=== PATIENT | female | born 1980 | race African-American/Black ===

== ENCOUNTER 2016-11-14 21:20 | Emergency (ER) | payer OTHER ==
[~2016-11-14] VITALS: Ht 165.1 cm; Wt 63.5 kg
[~2016-11-14 21:20] MED LIST: IBUPROFEN800 MG PO; NKM; NORCO 5-325 TA1 EACH ORAL; OCUFLOX5 ML BOTH EYES
[2016-11-14] MEDS ORDERED: NAPHCON-A EYE D15 ML OP (22:15)
[2016-11-14] MEDS ORDERED: CLARITIN10 M2 ORAL (22:15)
[2016-11-14 22:35] VITALS: BP 136/89
--- NOTE | 2016-11-15 03:40 | Emergency Room Report ---
History of Present Illness General Chief Complaint: Eye Problems Source: Patient Present Illness HPI Patient is a 36-year-old female who presented after having increased eye redness and discharge. Patient reported having several weeks of increased thin bilateral eye drainage associated with itching. The patient denied any thick crusting to the eyes. Patient stated that she was having similar symptoms in the past. Patient reported having some eye irritation. Allergies: Coded Allergies: No Known Allergies (Unverified , 06/02/13) Patient History Past Medical History: see triage record Last Menstrual Period: Oct Reviewed Nursing Documentation: PMH: Agreed, PSxH: Agreed Nursing Documentation-PM Past Medical History: No Stated History Review of Systems All Other Systems: negative except mentioned in HPI Physical Exam Vital Signs Date Time Temp Pulse Resp B/P Pulse Ox O2 Delivery O2 Flow Rate FiO2 11/14/16 22:03 98.4 97 16 136/89 100 Room Air General Appearance: well appearing, no apparent distress, alert, GCS 15 Head: normocephalic, atraumatic Eyes: bilateral eye PERRL, bilateral eye other - bilateral conjunctiva exudate ENT: hearing grossly normal, normal voice Neck: full range of motion, supple Respiratory: no respiratory distress, speaking full sentences Cardiovascular #1: normal inspection, normal peripheral pulses, regular rate, rhythm, no edema Gastrointestinal: normal inspection, normal bowel sounds, non tender, soft Genitourinary: normal inspection, no CVA tenderness Musculoskeletal: normal inspection, back normal, no calf tenderness Neurologic: normal inspection, alert, oriented x3, responsive, 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 Differential diagnosis included but wasn't limited to glaucoma, iritis, corneal abrasion, bacterial conjunctivitis, viral conjunctivitis. Patient's benign exam and does not appear to require any further imaging or laboratory testing at this time. The patient noted have some diminished visual acuity. 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 Patient was given prescription for topical eyedrops for allergy. Patient is advised to return should be having increased pain or decreased vision or other concerns. Last Vital Signs Date Time Temp Pulse Resp B/P Pulse Ox O2 Delivery O2 Flow Rate FiO2 11/14/16 22:35 98.4 75 16 136/89 100 Room Air Status: improved Disposition: HOME, SELF-CARE Condition: Stable Scripts Loratadine (CLARITIN) 10 Mg Capsule 10 MG ORAL DAILY, #30 CAP Prov: Mateus Fitzgerald 11/14/16 Naphazoline Hcl/Phenir Mal (NAPHCON-A EYE DROPS) 15 Ml Drops 15 ML OP BID, #15 ML Prov: Mateus Fitzgerald 11/14/16 Referrals: NOT CHOSEN IPA/MD,REFERRING Patient Instructions: Allergic Conjunctivitis Mateus Fitzgerald Nov 15, 2016 03:40
== END 2016-11-14 22:35 | disposition home or self-care (01) ==
LOC: EMR 22:18
DX: H10.13 Acute atopic conjunctivitis, bilateral (principal)
CPT/HCPCS: 99284

== ENCOUNTER 2017-04-25 21:52 | Emergency (ER) | payer OTHER ==
[~2017-04-25] VITALS: Ht 165.1 cm; Wt 49.9 kg
[~2017-04-25 21:52] MED LIST changes: +CLARITIN10 M2 ORAL; +NAPHCON-A EYE D15 ML OP
[2017-04-25 22:30] VITALS: BP 120/80
[2017-04-25] MEDS ORDERED: Bicillin LA 1.2 Million Units Syr IM ONE (23:15)
[2017-04-25] MEDS ORDERED: Ketorolac 60mg Inj IM ONE (23:15)
[2017-04-25] MEDS ORDERED: KEFLEX500 MG ORAL (23:35)
[2017-04-25] MEDS ORDERED: PREDNISONE20 MG ORAL (23:37)
[2017-04-26 00:13] VITALS: BP 124/82
--- NOTE | 2017-04-26 06:22 | Emergency Room Report ---
History of Present Illness General Chief Complaint: Skin Rash/Abscess Source: Patient Present Illness HPI Patient is a 36-year-old female who presented after increased rash to her neck face and upper extremity. She had gradual onset of symptoms in the past few days. Patient denies any fever. She stated that she had been squeezing several lesions and had noticed some drainage. She reported having a generalized itchiness. Allergies: Coded Allergies: No Known Allergies (Unverified , 06/02/13) Patient History Past Medical History: see triage record Now: No Reviewed Nursing Documentation: PMH: Agreed, PSxH: Agreed Nursing Documentation-PMH Past Medical History: No Stated History Review of Systems All Other Systems: negative except mentioned in HPI Physical Exam Vital Signs Date Time Temp Pulse Resp B/P Pulse Ox O2 Delivery O2 Flow Rate FiO2 04/25/17 22:25 97.9 78 16 120/80 98 Room Air General Appearance: well appearing, no apparent distress, alert, GCS 15 Head: normocephalic, atraumatic ENT: hearing grossly normal, normal voice Neck: full range of motion, supple Respiratory: no respiratory distress, speaking full sentences Gastrointestinal: normal inspection, non tender, soft Musculoskeletal: no calf tenderness Neurologic: normal gait Psychiatric: mood/affect normal Skin: other - multiple scaley areas to neck trunk, arms Medical Decision Making Diagnostic Impression: Primary Impression: Rash and other nonspecific skin eruption ER Course Patient presented for skin rash. Differential diagnosis included was not limited to Velasco-Alonso syndrome, urticaria, erythema multiforme, contact dermatitis. Patient's benign exam and does not appear to require any further imaging or laboratory testing at this time. The patient is advised to follow up with primary care doctor in 1-2 days. Patient is advised to return if any worsening condition or if any changes in status that are concerning. Last Vital Signs Date Time Temp Pulse Resp B/P Pulse Ox O2 Delivery O2 Flow Rate FiO2 04/26/17 00:13 76 20 124/82 98 Room Air 04/25/17 22:30 97.9 Status: improved Disposition: HOME, SELF-CARE Condition: Stable Scripts Prednisone* (PREDNISONE*) 20 Mg Tablet 40 MG ORAL DAILY, #10 TAB Prov: Mateus Fitzgerald 04/25/17 Referrals: [facility],REFERRING (PCP) Patient Instructions: Mateus Aguilar Apr 26, 2017 06:22
== END 2017-04-26 00:15 | disposition home or self-care (01) ==
LOC: EMR 22:57
DX: R21 Rash and other nonspecific skin eruption (principal)
CPT/HCPCS: 81025; 96372; 99283; J0561

== ENCOUNTER 2017-05-17 10:35 | Emergency (ER) | payer SELFPAY ==
[~2017-05-17] VITALS: Ht 167.6 cm; Wt 62.6 kg
[~2017-05-17 10:35] MED LIST changes: +KEFLEX500 MG ORAL; +PREDNISONE20 MG ORAL
[2017-05-17 11:27] VITALS: BP 134/88
[2017-05-17] MEDS ORDERED: PREDNISONE20 MG ORAL (11:41)
[2017-05-17] MEDS ORDERED: GENTAMICIN SUL3.5 GM OP (11:41)
--- NOTE | 2017-05-17 11:44 | Emergency Room Report ---
History of Present Illness General Chief Complaint: Eye Problems Source: Patient Present Illness HPI Patient presents with bilateral eye irritation Reports increased discharge and erythema starting 2 days ago patient states her course of antibiotics and treatment about 2 weeks ago and soon after that started to notice increased discomfort again patient Initially had followup with ophthalmology however it was not able to be seen in the office also reports difficulty being seen at her primary physician's office secondary to insurance issues Denies any fevers or chills she feels that initially everything started with a spider bite 2 months ago denies any neck pain or photophobia at this time Patient feels that nighttime her vision is worse but denies any eye pain Allergies: Coded Allergies: No Known Allergies (Unverified , 06/02/13) Patient History Past Medical History: see triage record Pertinent Family History: none Last Menstrual Period: 05/11/17 Now: No : 3 Para: 2 Reviewed Nursing Documentation: PMH: Agreed, PSxH: Agreed Nursing Documentation-PMH Past Medical History: No Stated History Review of Systems All Other Systems: negative except mentioned in HPI Physical Exam Vital Signs Date Time Temp Pulse Resp B/P (MAP) Pulse Ox O2 Delivery O2 Flow Rate FiO2 05/17/17 10:40 97.2 109 20 138/93 100 Room Air Sp02 EP Interpretation: reviewed, normal General Appearance: well appearing, no apparent distress Head: normocephalic, atraumatic Eyes: bilateral eye other - Bilateral conjunctival erythema, yellowish discharge, pupils are otherwise equal reactive extraocular motors are intact no signs of any proptosis, no signs of any bulging, ENT: normal pharynx, no angioedema Neck: supple, thyroid normal Respiratory: lungs clear Musculoskeletal: normal inspection Neurologic: alert, oriented x3, responsive Skin: other - Irritation of bilateral upper and lower eyelids as well Lymphatic: no adenopathy Medical Decision Making Diagnostic Impression: Primary Impression: Conjunctivitis ER Course Patient shows findings of bilateral conjunctivitis there might be an allergic component to this as well however given the discharge in appearance patient requires antibiotic coverage steroids were ordered for inflammatory process as well Patient requires close followup I did discuss [facility] clinic followup secondary to difficulty with her insurance And the patient will follow closely Last Vital Signs Date Time Temp Pulse Resp B/P (MAP) Pulse Ox O2 Delivery O2 Flow Rate FiO2 05/17/17 11:27 97.9 80 18 134/88 99 Room Air Status: unchanged Disposition: HOME, SELF-CARE Condition: Stable Scripts Prednisone* (PREDNISONE*) 20 Mg Tablet 20 MG ORAL BID, #8 TAB Prov: JUANCARLOS RODRIGUES D.O. 05/17/17 Gentamicin Sulfate* (GENTAMICIN SULFATE*) 3.5 Gm Oint...g. 3.5 GM OP TID for 7 Days, GM Prov: JUANCARLOS RODRIGUES D.O. 05/17/17 Patient Instructions: Bacterial Conjunctivitis, [id number] Additional Instructions: Patient is provided with the discharge instructions notified to follow up with primary doctor in the next 2-3 days otherwise return to the er with any worsening symptoms. Please note that this report is being documented using bMenu technology. This can lead to erroneous entry secondary to incorrect interpretation by the dictating instrument. JUANCARLOS RODRIGUES D.O. May 17, 2017 11:44
[2017-05-17 11:55] VITALS: BP 138/88
== END 2017-05-17 12:12 | disposition home or self-care (01) ==
LOC: EMR 12:04
DX: H10.9 Unspecified conjunctivitis (principal)
CPT/HCPCS: 99284

== ENCOUNTER 2017-12-19 10:37 | Emergency (ER) | payer MEDICAID ==
[~2017-12-19] VITALS: Ht 165.1 cm; Wt 60.8 kg
[~2017-12-19 10:37] MED LIST changes: +GENTAMICIN SUL3.5 GM OP
[2017-12-19] MEDS ORDERED: ACYCLOVIR400 MG ORAL (10:57)
[2017-12-19 11:03] VITALS: BP 114/68
[2017-12-19] MEDS ORDERED: Acetaminophen 500mg (ES) tab ORAL ONE (11:30)
[2017-12-19 11:58] LABS: HEMATOCRIT 26.6 % (37.0-47.0); HEMOGLOBIN 7.9 G/DL (12.0-16.0); MEAN CORPUSCULAR VOLUME 60 FL (80-99); PLATELET COUNT 605 K/UL (150-450); RED BLOOD COUNT 4.45 M/UL (4.20-5.40); RED CELL DISTRIBUTION WIDTH 19.5 % (11.6-14.8); WHITE BLOOD COUNT 6.7 K/UL (4.8-10.8)
[2017-12-19 12:09] LABS: APPEARANCE,URINE CLEAR; BILIRUBIN, URINE NEGATIVE (NEGATIVE); GLUCOSE, URINE (UA) NEGATIVE (NEGATIVE); KETONES,URINE NEGATIVE (NEGATIVE); LEUKOCYTE ESTERASE ,URINE 1+ (NEGATIVE); NITRITE,URINE NEGATIVE (NEGATIVE); PH,URINE 8 (4.5-8.0); PROTEIN,URINE NEGATIVE (NEGATIVE); UROBILINOGEN,URINE NORMAL MG/DL (0.0-1.0)
[2017-12-19 12:12] LABS: ANION GAP 7 mmol/L (5-15); BLOOD UREA NITROGEN 9 mg/dL (7-18); CALCIUM 8.3 MG/DL (8.5-10.1); CARBON DIOXIDE 27 MMOL/L (21-32); CHLORIDE 107 MMOL/L (98-107); CREATININE 0.6 MG/DL (0.55-1.30); POTASSIUM 3.8 MMOL/L (3.5-5.1); SODIUM 141 MMOL/L (136-145)
[2017-12-19 12:13] LABS: COLOR,URINE YELLOW
[2017-12-19 12:18] LABS: ALANINE AMINOTRANSFERASE 45 U/L (12-78); ALBUMIN 3.1 G/DL (3.4-5.0); ALBUMIN/GLOBULIN RATIO 0.9 (1.0-2.7); ALKALINE PHOSPHATASE 81 U/L (46-116); ASPARTATE AMINO TRANSFERASE 50 U/L (15-37); BILIRUBIN,TOTAL 0.2 MG/DL (0.2-1.0)
--- NOTE | 2017-12-19 13:50 | Emergency Room Report ---
History of Present Illness General Chief Complaint: Abdominal Pain Source: Patient Present Illness HPI This patient states that for the past 4 months she has had mid abdominal and lower abdominal pain. She states she has a history of ovarian cysts that were diagnosed 14 years ago. She is concerned that she is having recurrence or enlarging cyst. She did see her primary care physician and is planning on seeing a stacker attendant for acne on her face. However, she states that she is concerned about enlarging cyst. She denies abnormal vaginal discharge. She denies abnormal vaginal bleeding. She denies dysuria or hematuria. She has no other complaints. Allergies: Coded Allergies: No Known Allergies (Unverified , 06/02/13) Patient History Past Medical History: see triage record Social History: Denies: smoking, alcohol use, drug use Last Menstrual Period: 11/14/17 Reviewed Nursing Documentation: PMH: Agreed; PSxH: Agreed Review of Systems All Other Systems: negative except mentioned in HPI Physical Exam Vital Signs Date Time Temp Pulse Resp B/P (MAP) Pulse Ox O2 Delivery O2 Flow Rate FiO2 12/19/17 10:52 98.5 91 17 114/68 98 Room Air 98.4 Sp02 EP Interpretation: reviewed, normal General Appearance: no apparent distress, alert, GCS 15, non-toxic Head: normocephalic, atraumatic Eyes: bilateral eye normal inspection, bilateral eye PERRL ENT: hearing grossly normal, normal pharynx, no angioedema, normal voice Neck: full range of motion, supple/symm/no masses Respiratory: chest non-tender, lungs clear, normal breath sounds, speaking full sentences Cardiovascular #1: regular rate, rhythm, no edema Gastrointestinal: normal bowel sounds, soft, non-distended, no guarding, no rebound, tenderness - Mild TTP mid abdomen Rectal: deferred Musculoskeletal: back normal, gait/station normal, normal range of motion, non- tender Neurologic: alert, oriented x3, responsive, motor strength/tone normal, sensory intact, speech normal Psychiatric: judgement/insight normal, memory normal, mood/affect normal, no suicidal/homicidal ideation Skin: normal color, no rash, warm/dry, well hydrated Medical Decision Making Diagnostic Impression: Primary Impression: Fibroid uterus Additional Impression: Ovarian cyst ER Course The patient is found to have fibroids and 2 small ovarian cysts. She is also moderately anemic. Further discussion with the patient and she reports that she has a history of anemia and had been on iron previously, but hasn't for a while. She states she also has very heavy menstrual periods. She is also concerned about her face. She states that she has chronic skin peeling and tightening with facial hair. She does have plans to see a stacker attendant because she was referred by her primary care physician. I am unsure what the skin condition is but it appears chronic and non-urgent. I will give the patient Aquaphor for its soothing properties. She is also instructed to see a stacker attendant for this. She is instructed to follow-up with her primary care physician for her fibroids and ovarian cysts. I will start the patient back on iron. She is given close return precautions and follow-up instructions. Laboratory Tests Test 12/19/17 11:43 12/19/17 11:50 White Blood Count 6.7 K/UL (4.8-10.8) Red Blood Count 4.45 M/UL (4.20-5.40) Hemoglobin 7.9 G/DL (12.0-16.0) L Hematocrit 26.6 % (37.0-47.0) L Mean Corpuscular Volume 60 FL (80-99) L Mean Corpuscular Hemoglobin 17.7 PG (27.0-31.0) L Mean Corpuscular Hemoglobin Concent 29.6 G/DL (32.0-36.0) L Red Cell Distribution Width 19.5 % (11.6-14.8) H Platelet Count 605 K/UL (150-450) H Mean Platelet Volume 6.1 FL (6.5-10.1) L Neutrophils (%) (Auto) % (45.0-75.0) Lymphocytes (%) (Auto) % (20.0-45.0) Monocytes (%) (Auto) % (1.0-10.0) Eosinophils (%) (Auto) % (0.0-3.0) Basophils (%) (Auto) % (0.0-2.0) Differential Total Cells Counted 100 Neutrophils % (Manual) 64 % (45-75) Lymphocytes % (Manual) 22 % (20-45) Monocytes % (Manual) 10 % (1-10) Eosinophils % (Manual) 3 % (0-3) Basophils % (Manual) 1 % (0-2) Band Neutrophils 0 % (0-8) Platelet Estimate Increased H Platelet Morphology Normal Hypochromasia 2+ Anisocytosis 2+ Microcytosis 2+ Sodium Level 141 MMOL/L (136-145) Potassium Level 3.8 MMOL/L (3.5-5.1) Chloride Level 107 MMOL/L (98-107) Carbon Dioxide Level 27 MMOL/L (21-32) Anion Gap 7 mmol/L (5-15) Blood Urea Nitrogen 9 mg/dL (7-18) Creatinine 0.6 MG/DL (0.55-1.30) Estimate Glomerular Filtration Rate > 60 mL/min (>60) Glucose Level 90 MG/DL (74-106) Calcium Level 8.3 MG/DL (8.5-10.1) L Total Bilirubin 0.2 MG/DL (0.2-1.0) Aspartate Amino Transferase (AST) 50 U/L (15-37) H Alanine Aminotransferase (ALT) 45 U/L (12-78) Alkaline Phosphatase 81 U/L (46-116) Total Protein 6.5 G/DL (6.4-8.2) Albumin 3.1 G/DL (3.4-5.0) L Globulin 3.4 g/dL Albumin/Globulin Ratio 0.9 (1.0-2.7) L Lipase 89 U/L (73-393) Urine Color Yellow Urine Appearance Clear Urine pH 8 (4.5-8.0) Urine Specific [place] 1.010 (1.005-1.035) Urine Protein Negative (NEGATIVE) Urine Glucose (UA) Negative (NEGATIVE) Urine Ketones Negative (NEGATIVE) Urine Occult Blood Negative (NEGATIVE) Urine Nitrite Negative (NEGATIVE) Urine Bilirubin Negative (NEGATIVE) Urine Urobilinogen Normal MG/DL (0.0-1.0) Urine Leukocyte Esterase 1+ (NEGATIVE) H Urine RBC 0-2 /HPF (0 - 2) Urine WBC 2-4 /HPF (0 - 2) Urine Squamous Epithelial Cells Few /LPF (NONE/OCC) Urine Bacteria Occasional /HPF (NONE) Urine HCG, Qualitative Negative (NEGATIVE) CT/MRI/US Diagnostic Results CT/MRI/US Diagnostic Results : Imaging Test Ordered: US pelvis Impression Uterine fibroids. 2 ovarian cysts less than 2 cm in size. See official report. Last Vital Signs Date Time Temp Pulse Resp B/P (MAP) Pulse Ox O2 Delivery O2 Flow Rate FiO2 12/19/17 11:37 98.1 12/19/17 11:03 91 17 114/68 98 Room Air Status: improved Disposition: HOME, SELF-CARE Condition: Improved Referrals: [facility],REFERRING (PCP) YOLANDA VALADEZ D.O. Dec 19, 2017 13:50
[2017-12-19] MEDS ORDERED: VITAMIN C500 M1 ORAL (13:55)
[2017-12-19] MEDS ORDERED: FERROUS SULFAT325 MG ORAL (13:55)
[2017-12-19] MEDS ORDERED: AQUAPHOR OINTM396 GM TP (13:55)
[2017-12-19 14:20] VITALS: BP 114/68
--- NOTE | 2017-12-20 09:20 | Diagnostic Imaging Report ---
Indication: Abdominal pain, pelvic pain, negative test Technique: Transabdominal and transvaginal images Comparison: none Findings: Uterus measures 8.5 cm length by 4.8 cm AP. Endometrium measures 10 mm thick. Small hypoechoic structures measuring up to 11 mm diameter are seen in the myometrium consistent with fibroids. A small amount of free fluid is seen in the pelvic cul-de-sac. The right ovary measures 3.8 cm in length. Left ovary measures 4.9 cm in length. Prominent follicles are seen bilaterally. Impression: Small uterine fibroids Trace pelvic cul-de-sac fluid, most likely physiologic Otherwise unremarkable
== END 2017-12-19 14:23 | disposition home or self-care (01) ==
LOC: EMR 11:32
DX: D25.9 Leiomyoma of uterus, unspecified (principal); N83.209 Unspecified ovarian cyst, unspecified side; D64.9 Anemia, unspecified
CPT/HCPCS: 36415; 76856; 80053; 81003; 81025; 83690; 85007; 85025; 99284

== ENCOUNTER 2018-09-19 16:31 | Emergency (ER) | payer SELFPAY ==
[~2018-09-19] VITALS: Ht 165.1 cm; Wt 63.5 kg
[~2018-09-19 16:31] MED LIST changes: +ACYCLOVIR400 MG ORAL; +AQUAPHOR OINTM396 GM TP; +FERROUS SULFAT325 MG ORAL; +VITAMIN C500 M1 ORAL
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
[2018-09-19 16:55] VITALS: BP 125/87
[2018-09-19] MEDS ORDERED: Methocarbamol 500mg tab ORAL ONE (17:00)
[2018-09-19] MEDS ORDERED: Acetaminophen 500mg (ES) tab ORAL ONE (17:00)
[2018-09-19] MEDS ORDERED: TYLENOL EXTRA500 MG ORAL (17:23)
[2018-09-19] MEDS ORDERED: DEBROX15 M1 BOTH EARS (17:23)
[2018-09-19] MEDS ORDERED: ROBAXIN500 MG PO (17:23)
[2018-09-19] MEDS ORDERED: LIDOCAINE700 M1 TP (17:23)
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
--- NOTE | 2018-09-19 17:36 | NUR ---
ED Nurse Note: Discharge instructions given to pt. Answered all questions. Verbalized understanding. No acute distress noted. ID band removed. Left ER w/ steady gait and all belongings.
== END 2018-09-19 17:38 | disposition home or self-care (01) ==
LOC: EMR 17:30
DX: M54.2 Cervicalgia (principal); M54.9 Dorsalgia, unspecified; V43.62XA Car passenger injured in collision with other type car in traffic accident, initial encounter; Y92.410 Unspecified street and highway as the place of occurrence of the external cause; H61.23 Impacted cerumen, bilateral
CPT/HCPCS: 99283

== ENCOUNTER 2019-01-08 21:20 | Emergency (ER) | payer SELFPAY ==
[~2019-01-08] VITALS: Ht 165.1 cm; Wt 61.2 kg
[~2019-01-08 21:20] MED LIST changes: +DEBROX15 M1 BOTH EARS; +LIDOCAINE700 M1 TP; +ROBAXIN500 MG PO; +TYLENOL EXTRA500 MG ORAL
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
--- NOTE | 2019-01-08 21:53 | NUR ---
ED Nurse Note: pt states she cannot provide urine because she doesn't want to walk and doesn't have to use restroom ERMD aware of pt's condition.
[2019-01-08 22:00] VITALS: BP 144/87
[2019-01-08] MEDS ORDERED: Tetanus/Diptheria/Pertussis IM ONE (22:00)
[2019-01-08] MEDS ORDERED: Tylenol #3 tab (300mg/30mg) PO ONE (22:00)
[2019-01-09] MEDS ORDERED: ROBAXIN-750750 MG PO (00:02)
[2019-01-09] MEDS ORDERED: IBUPROFEN600 MG ORAL (00:02)
--- NOTE | 2019-01-09 00:09 | NUR ---
ED Nurse Note: pt cleared to be d/c per ERMD, pt discharge and aftercare instruction provided w/ prescription, pt education done via discussion and handout, pt advised to follow up with pcp or return to ed if changes in condition, pt verbalized understanding and agrees with plan, vss, ambulatory w/ steady gait, left w/ all belongings.
[2019-01-09 00:10] VITALS: BP 128/67
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
== END 2019-01-09 00:10 | disposition home or self-care (01) ==
LOC: EMR 22:00
DX: R51 Headache (principal); M54.2 Cervicalgia; M79.605 Pain in left leg; V49.9XXA Car occupant (driver) (passenger) injured in unspecified traffic accident, initial encounter; Y92.410 Unspecified street and highway as the place of occurrence of the external cause; Z23 Encounter for immunization
CPT/HCPCS: 70450; 70486; 72125; 81025; 90471; 90715; 99284

== ENCOUNTER 2019-07-10 17:36 | Emergency (ER) | payer SELFPAY ==
[~2019-07-10] VITALS: Ht 165.1 cm; Wt 63.5 kg
[~2019-07-10 17:36] MED LIST changes: +IBUPROFEN600 MG ORAL; +ROBAXIN-750750 MG PO
[2019-07-10 18:00] VITALS: BP 134/85
--- NOTE | 2019-07-10 18:00 | NUR ---
ER Nurse Note: Pt walked in c/o itchiness from "bug bites" for a few days. Pt stated they got a new car and s/s of itchiness and "feeling bugs crawl on me" occured after the purchase. No rash and redness noted. Pt is scratching. Pt applied topical ointments but not effective.
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
[2019-07-10] MEDS ORDERED: PERMETHRIN60 GM TOPIC (18:14)
[2019-07-10] MEDS ORDERED: KENALOG 0.025%15 GM APPLIC (18:14)
[2019-07-10] MEDS ORDERED: PREDNISONE20 MG ORAL (18:14)
[2019-07-10 18:28] VITALS: BP 134/85
--- NOTE | 2019-07-10 18:28 | NUR ---
ER Nurse Note: Pt seen, treated, medically cleared for discharge by ER PA. Discharge instuctions and prescriptions given with repeat verbalization by pt. Emphasized to follow up with primay care provider. All orders completed per ER PA orders. Pt a&ox4, VSS, no signs of distress; pt ambulatory with steady gait. ID band removed. All questions answered per pt's questions. Pt left with all belongings, left with own transportation.
== END 2019-07-10 18:28 | disposition home or self-care (01) ==
LOC: EMR 18:00
DX: B86 Scabies (principal); L25.9 Unspecified contact dermatitis, unspecified cause
CPT/HCPCS: 99282; J7512

== ENCOUNTER 2019-07-16 06:29 | Emergency (ER) | payer SELFPAY ==
[~2019-07-16] VITALS: Ht 165.1 cm; Wt 61.2 kg
[~2019-07-16 06:29] MED LIST changes: +KENALOG 0.025%15 GM APPLIC; +PERMETHRIN60 GM TOPIC
[2019-07-16 06:45] VITALS: BP 151/96
--- NOTE | 2019-07-16 06:45 | NUR ---
ED Nurse Note: Patient walked into ED c/o right eye problems, states that she was recently seen here a few days prior for the same reason however earlier this morning felt a parasite jump on it, patient does present with a raisued and inflamed right eye however field of vision remains intact, states that she feels something moving. patient is alert and oriented x4, ambulatory with a steady gait, VSS
[2019-07-16] MEDS ORDERED: Fluorescein Strips RIGHT EYE ONE (07:15)
[2019-07-16] MEDS ORDERED: Tetracaine 0.5% Opth 4ml Soln RIGHT EYE ONE (07:15)
--- NOTE | 2019-07-16 07:15 | NUR ---
HAND-OFF: Report given to ERICKA Zayas.
--- NOTE | 2019-07-16 07:15 | Emergency Room Report ---
History of Present Illness General Chief Complaint: Eye Problems Source: Patient Present Illness HPI Patient presents with right eye swelling and itching and pain. She was treated for scabies 2 days ago. She says that the parasites of gotten into her eye. There is no change in her vision but she has some swelling there. She says she applied the Elimite lotion but it is not helping. She also complains about cough and coughing up parasites. In addition she has nausea and vomiting on occasion. She says that she is been vomiting up the parasites also. She brought her son recently to be evaluated because he had been exposed to some parasite or bug. Initially she states her tox screen will be negative but then she says that she has done meth a couple of days ago. She said that this is not related to the problem because she started feeling the parasites before use. She has herpes simplex virus. She says that she takes acyclovir on occasion. She does not have this medication at this time. She does not feel this is related. No fevers, chills, chest pain, palpitations, dysuria, abdominal pain, shortness of breath, joint pain, depression, anxiety, dizziness, headache. Patient has a history of eczema Allergies: Coded Allergies: No Known Allergies (Unverified , 06/02/13) Patient History Past Medical History: see triage record, other - Eczema Social History: Reports: drug use Social History Narrative in her car with her sons - 10 and 18 Last Menstrual Period: currently on it Reviewed Nursing Documentation: PMH: Agreed; PSxH: Agreed Nursing Documentation-PMH Past Medical History: No History, Except For Review of Systems All Other Systems: negative except mentioned in HPI Physical Exam Vital Signs Date Time Temp Pulse Resp B/P (MAP) Pulse Ox O2 Delivery O2 Flow Rate FiO2 07/16/19 06:34 97.5 79 18 151/96 (114) 97 Room Air Sp02 EP Interpretation: reviewed, normal General Appearance: well appearing, no apparent distress, GCS 15, non-toxic Head: normocephalic Eyes: right eye fluoroscene uptake - none with nation lamp, right eye lid inflammation - minimal, right eye other - chemosis; bilateral eye normal inspection, bilateral eye PERRL, bilateral eye EOMI ENT: normal pharynx Neck: supple Respiratory: lungs clear, normal breath sounds Cardiovascular #1: regular rate, rhythm Cardiovascular #2: 2+ radial (R) Gastrointestinal: normal inspection, normal bowel sounds, non tender, no mass, non-distended Genitourinary: no CVA tenderness Musculoskeletal: back normal, gait/station normal, normal range of motion Neurologic: alert, oriented x3, grossly normal Psychiatric: anxious - alightly Skin: warm/dry, other - maculopapular rash, neck and antecubital areas Medical Decision Making Homeless Attestation I, The treating physician Dr. Hanna, have assessed and agree that patient is medically stable for discharge to an outpatient disposition. Diagnostic Impression: Primary Impression: Chemosis of right conjunctiva Additional Impressions: Eczema Qualified Codes: L30.9 - Dermatitis, unspecified Amphetamine abuse ER Course Patient presents with right eye complaints but also has generalized somatic complaints of a possible parasite. Differential includes corneal abrasion, allergic reaction, reaction to Elimite lotion, viral conjunctivitis amongst others. She has a generalized rash and needs to be examined more fully. She believes she is coughing up material and therefore the work-up needs to be more generalized. She will be evaluated with chest x-ray and labs. In addition the right eye will be checked for corneal abrasion. No corneal abrasion. Labs remarkable for normal white count. CMP normal. Urinalysis negative. Urine tox positive for THC and amphetamines. Chest x-ray no infiltrates. Discussed with patient findings. Patient administered eyedrops in the emergency department. Discussed treatment plan with patient. Also admonished to attend 12-step program. Patient slightly abusive with staff at time of discharge. No medical emergency. Patient stable for outpatient observation and treatment. Laboratory Tests Test 07/16/19 07:25 07/16/19 09:30 White Blood Count 9.5 K/UL (4.8-10.8) Red Blood Count 5.37 M/UL (4.20-5.40) Hemoglobin 11.7 G/DL (12.0-16.0) L Hematocrit 37.4 % (37.0-47.0) Mean Corpuscular Volume 70 FL (80-99) L Mean Corpuscular Hemoglobin 21.7 PG (27.0-31.0) L Mean Corpuscular Hemoglobin Concent 31.1 G/DL (32.0-36.0) L Red Cell Distribution Width 17.4 % (11.6-14.8) H Platelet Count 536 K/UL (150-450) H Mean Platelet Volume 5.7 FL (6.5-10.1) L Neutrophils (%) (Auto) % (45.0-75.0) Lymphocytes (%) (Auto) % (20.0-45.0) Monocytes (%) (Auto) % (1.0-10.0) Eosinophils (%) (Auto) % (0.0-3.0) Basophils (%) (Auto) % (0.0-2.0) Differential Total Cells Counted 100 Neutrophils % (Manual) 89 % (45-75) H Lymphocytes % (Manual) 9 % (20-45) L Monocytes % (Manual) 2 % (1-10) Eosinophils % (Manual) 0 % (0-3) Basophils % (Manual) 0 % (0-2) Band Neutrophils 0 % (0-8) Platelet Estimate Adequate Platelet Morphology Normal Anisocytosis 1+ Microcytosis 2+ Sodium Level 139 MMOL/L (136-145) Potassium Level 4.0 MMOL/L (3.5-5.1) Chloride Level 106 MMOL/L (98-107) Carbon Dioxide Level 27 MMOL/L (21-32) Anion Gap 6 mmol/L (5-15) Blood Urea Nitrogen 11 mg/dL (7-18) Creatinine 0.8 MG/DL (0.55-1.30) Estimate Glomerular Filtration Rate > 60 mL/min (>60) Glucose Level 97 MG/DL (74-106) Calcium Level 8.1 MG/DL (8.5-10.1) L Total Bilirubin 0.2 MG/DL (0.2-1.0) Aspartate Amino Transferase (AST) 22 U/L (15-37) Alanine Aminotransferase (ALT) 23 U/L (12-78) Alkaline Phosphatase 73 U/L (46-116) Total Creatine Kinase 104 U/L (26-308) Total Protein 8.0 G/DL (6.4-8.2) Albumin 3.7 G/DL (3.4-5.0) Globulin 4.3 g/dL Albumin/Globulin Ratio 0.9 (1.0-2.7) L Salicylates Level 1.2 ug/mL (2.8-20) L Acetaminophen Level < 2 MCG/ML (10-30) L Serum Alcohol < 3 mg/dL Urine Color Pale yellow Urine Appearance Clear Urine pH 7 (4.5-8.0) Urine Specific [place] 1.010 (1.005-1.035) Urine Protein Negative (NEGATIVE) Urine Glucose (UA) Negative (NEGATIVE) Urine Ketones Negative (NEGATIVE) Urine Blood Negative (NEGATIVE) Urine Nitrite Negative (NEGATIVE) Urine Bilirubin Negative (NEGATIVE) Urine Urobilinogen Normal MG/DL (0.0-1.0) Urine Leukocyte Esterase Negative (NEGATIVE) Urine HCG, Qualitative Negative (NEGATIVE) Urine Opiates Screen Negative (NEGATIVE) Urine Barbiturates Screen Negative (NEGATIVE) Phencyclidine (PCP) Screen Negative (NEGATIVE) Urine Amphetamines Screen Positive (NEGATIVE) H Urine Benzodiazepines Screen Negative (NEGATIVE) Urine Cocaine Screen Negative (NEGATIVE) Urine Marijuana (THC) Screen Positive (NEGATIVE) H Chest X-Ray Diagnostic Results Chest X-Ray Diagnostic Results : Chest X-Ray Ordered: Yes # of Views/Limited/Complete: 1 View Indication: Other EP Interpretation: Yes Interpretation: no consolidation, no effusion, no pneumothorax Impression: No acute disease Electronically Signed by: Electronically signed by Marquez Hanna MD Last Vital Signs Date Time Temp Pulse Resp B/P (MAP) Pulse Ox O2 Delivery O2 Flow Rate FiO2 07/16/19 10:59 98.1 78 16 144/93 99 Room Air Status: improved Disposition: HOME, SELF-CARE Condition: Improved Scripts Naphazoline Hcl/Pheniramine (OPCON-A EYE DROPS) 15 Ml Drops 2 DROP OP Q6HR, #10 ML Prov: Marquez Hanna MD 07/16/19 Triamcinolone Acetonide (Triamcinolone Acetonide 0.025% Cream) 80 Gm Cream..g. 1 APPLIC TP BID, #60 GM Prov: Marquez Hanna MD 07/16/19 Marquez Hanna MD Jul 16, 2019 07:15
--- NOTE | 2019-07-16 07:37 | NUR ---
ED Nurse Note: patient is awake and talkative, responds to name and questions accuratly. patient states she has paracites on the right eye and feels them around but [place] exact location, she is calm and bed with no resporatory distress, remains calm.
--- NOTE | 2019-07-16 07:44 | NUR ---
ED Nurse Note: patient unable to give urine sample, water placed at the bedside to given to assist with collection of urine sample.
[2019-07-16 07:54] LABS: ANION GAP 6 mmol/L (5-15); BLOOD UREA NITROGEN 11 mg/dL (7-18); CALCIUM 8.1 MG/DL (8.5-10.1); CARBON DIOXIDE 27 MMOL/L (21-32); CHLORIDE 106 MMOL/L (98-107); CREATININE 0.8 MG/DL (0.55-1.30); HEMATOCRIT 37.4 % (37.0-47.0); HEMOGLOBIN 11.7 G/DL (12.0-16.0); MEAN CORPUSCULAR VOLUME 70 FL (80-99); PLATELET COUNT 536 K/UL (150-450); RED BLOOD COUNT 5.37 M/UL (4.20-5.40); RED CELL DISTRIBUTION WIDTH 17.4 % (11.6-14.8); SODIUM 139 MMOL/L (136-145); WHITE BLOOD COUNT 9.5 K/UL (4.8-10.8)
[2019-07-16 07:59] LABS: ALANINE AMINOTRANSFERASE 23 U/L (12-78); ALBUMIN 3.7 G/DL (3.4-5.0); ALBUMIN/GLOBULIN RATIO 0.9 (1.0-2.7); ALKALINE PHOSPHATASE 73 U/L (46-116); ASPARTATE AMINO TRANSFERASE 22 U/L (15-37); BILIRUBIN,TOTAL 0.2 MG/DL (0.2-1.0); CREATINE KINASE 104 U/L (26-308)
--- NOTE | 2019-07-16 08:01 | Diagnostic Imaging Report ---
EXAM: XR Chest, 1 View CLINICAL HISTORY: COUGH TECHNIQUE: Frontal view of the chest. COMPARISON: No relevant prior studies available. FINDINGS: Lungs: Unremarkable. No consolidation. Pleural space: Unremarkable. No pneumothorax. Heart: Unremarkable. No cardiomegaly. Mediastinum: Unremarkable. Bones joints: Unremarkable. IMPRESSION: Normal chest x-ray.
[2019-07-16 08:35] VITALS: BP 125/108
[2019-07-16 09:45] LABS: APPEARANCE,URINE CLEAR; BILIRUBIN, URINE NEGATIVE (NEGATIVE); COLOR,URINE PALE YELLOW; GLUCOSE, URINE (UA) NEGATIVE (NEGATIVE); KETONES,URINE NEGATIVE (NEGATIVE); LEUKOCYTE ESTERASE ,URINE NEGATIVE (NEGATIVE); NITRITE,URINE NEGATIVE (NEGATIVE); PH,URINE 7 (4.5-8.0); PROTEIN,URINE NEGATIVE (NEGATIVE); UROBILINOGEN,URINE NORMAL MG/DL (0.0-1.0)
[2019-07-16] MEDS ORDERED: Naphazoline 0.03% Opth Soln 15ml RIGHT EYE ONE (09:45)
[2019-07-16] MEDS ORDERED: Ketotifen Fumarate 0.035% 5ml RIGHT EYE ONE (09:45)
[2019-07-16] MEDS ORDERED: TRIAMCINOLONE A80 GM TP (10:24)
[2019-07-16] MEDS ORDERED: OPCON-A EYE DRO15 ML OP (10:24)
[2019-07-16 10:58] VITALS: BP 144/93
[2019-07-16 10:59] VITALS: BP 144/93
== END 2019-07-16 10:59 | disposition home or self-care (01) ==
LOC: EMR 07:12
DX: H11.421 Conjunctival edema, right eye (principal); L30.9 Dermatitis, unspecified; F15.10 Other stimulant abuse, uncomplicated; R11.2 Nausea with vomiting, unspecified; R05 Cough
CPT/HCPCS: 36415; 71045; 80053; 80307; 81003; 81025; 82550; 85007; 85025; 99284; G0480; C9399

== ENCOUNTER 2020-01-28 18:44 | Emergency (ER) | payer MEDICAID ==
[~2020-01-28] VITALS: Ht 167.6 cm; Wt 63.5 kg
[~2020-01-28 18:44] MED LIST changes: +OPCON-A EYE DRO15 ML OP; +TRIAMCINOLONE A80 GM TP
[2020-01-28 19:08] VITALS: BP 125/89
--- NOTE | 2020-01-28 19:10 | NUR ---
ED Nurse Note: Patient ambulated to ER from home d/t generalized itchiness started 8 months ago. Per patient she has this problem almost a year, on and off. Patient presented calm, AAO x4, VSS at this time.
[2020-01-28] MEDS ORDERED: HYDROXYZINE HCL25 M1 PO (19:14)
[2020-01-28] MEDS ORDERED: TRIAMCINOLONE A15 G2 TP (19:14)
[2020-01-28] MEDS ORDERED: PREDNISONE20 MG ORAL (19:14)
--- NOTE | 2020-01-28 19:21 | Emergency Room Report ---
History of Present Illness General Chief Complaint: General Complaint Source: Patient Present Illness HPI Patient is a 39-year-old female presents after increased bilateral upper extremity rash associated with some neck itchiness as well. Patient reports having multiple prior hospital visits for similar symptoms in the past. She states that this been ongoing for several months reports having recently used permethrin without any improvement. She states that rash is itchy and she had been taking Benadryl without much improvement. Previously had been prescribed steroids in the past. 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 Patient History Past Medical History: see triage record Last Menstrual Period: 01/17/20 Now: No Reviewed Nursing Documentation: PMH: Agreed; PSxH: Agreed Nursing Documentation-PMH Past Medical History: No Stated History Review of Systems All Other Systems: negative except mentioned in HPI Physical Exam Vital Signs Date Time Temp Pulse Resp B/P (MAP) Pulse Ox O2 Delivery O2 Flow Rate FiO2 01/28/20 18:51 99.1 105 20 125/89 (101) 96 Room Air General Appearance: well appearing, no apparent distress, alert, GCS 15, non- toxic Head: normocephalic, atraumatic ENT: hearing grossly normal, normal voice Neck: full range of motion, supple, other - Skin thickening and dark discoloration. 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 Differential diagnosis include was not limited to contact dermatitis, photosensitive reaction, autoimmune disease among others. Patient does not appear to have any acute medical illness and does not require any emergency work-up at this time. Patient's rash appears to be somewhat chronic and is likely a contact dermatitis or photosensitivity. Patient was advised to follow-up with her primary care physician for further work-up. She was advised to discontinue taking Benadryl at the same time she is given Atarax. She is given prescription for topical steroids as well as medications for symptomatic management. She was also given prescription for short dose of prednisone. Patient was advised to follow-up with her primary care physician for dermatology referral. She was advised to return if worse. This medical record is generated with [employer] monotype machinist software. There may be some monotype machinist discrepancies related to use of this software Last Vital Signs Date Time Temp Pulse Resp B/P (MAP) Pulse Ox O2 Delivery O2 Flow Rate FiO2 01/28/20 19:08 105 20 Room Air 01/28/20 19:08 99.1 125/89 96 Status: improved Disposition: HOME, SELF-CARE Condition: Stable Scripts Hydroxyzine Hcl (HYDROXYZINE HCL) 25 Mg Tablet 25 MG PO EVERY 6 HOURS, #30 TAB Prov: Mateus Fitzgerald MD 01/29/20 Prednisone* (PREDNISONE*) 20 Mg Tablet 40 MG ORAL DAILY, #15 TAB Prov: Mateus Fitzgerald MD 01/29/20 Triamcinolone Acetonide (Triamcinolone Acetonide 0.1% Oint*) 15 Gm Oint...g. 0 TP NEEDED, #15 GM Prov: Mateus Fitzgerald MD 01/29/20 Patient Instructions: Rash Additional Instructions: Follow up with your doctor for further workup of rash. Take medication as prescribed. Return if worse. Mateus Fitzgerald MD January 28, 2020 19:21
[2020-01-28 20:04] VITALS: BP 125/89
--- NOTE | 2020-01-28 20:04 | NUR ---
ED Nurse Note: Pt cleared by health care Provider for discharge. DC instructions/prescription was given and explained to pt and verbalized understanding of teachings. All medical deviecs such as ID band removed. Pt is AAO x4, ambulatory and left with all personal belongings.
[2020-01-29] MEDS ORDERED: TRIAMCINOLONE A15 G2 TP (17:56)
[2020-01-29] MEDS ORDERED: HYDROXYZINE HCL25 M1 PO (17:56)
[2020-01-29] MEDS ORDERED: PREDNISONE20 MG ORAL (17:56)
== END 2020-01-28 20:06 | disposition home or self-care (01) ==
LOC: EMR 19:52
DX: R21 Rash and other nonspecific skin eruption (principal)
CPT/HCPCS: 81025; Z7502; 99283